=== PATIENT | male | born 1975 | race Caucasian/White ===

== ENCOUNTER 2022-06-24 13:26 | Outpatient (CLI) | payer OTHER | END 2022-06-24 13:27 | disposition home or self-care (01) | LOC: BICCT 13:26 | PROVIDERS: ATTEND Physician Assistant | DX: S06.5XAD Traumatic subdural hemorrhage with loss of consciousness status unknown, subsequent encounter (principal); S02.119D Unspecified fracture of occiput, subsequent encounter for fracture with routine healing | CPT/HCPCS: 70450 ==